=== PATIENT | male | born 1960 | race Hispanic/Latino ===

== ENCOUNTER → 2025-11-28 | Outpatient (CLI) | payer OTHER ==
[~2025-11-28] VITALS: Ht 188 cm; Wt 92.7 kg
[~2025-11-28] MED LIST: ASPI-1197 PO; ATOR40TA69 PO; BUSP15TA3 PO; EMPA25TA PO; FURO20TA4 PO; ISOS30TA92 PO; LISI20TA24 PO; LORA10TA7 PO; METF-444 PO; METO-409 PO; PROP225T8 PO; SERT-439 PO; TRAM100T34 PO; TRAZ150T79 PO
--- NOTE | 2025-11-28 08:51 | EKG ---
[facility] Test Date: 2025-11-28 Test Time: 08:47:35 Pat Name: MITCH WALSH Department: [facility] Room: Gender: M Informatica: [id number] : 1960 Requested By: LIVE KIDD Order Number: [id number] Reading MD: Danielle Johnson Measurements Intervals Myrtle Rate: 62 P: -1 NJ: 247 QRS: -21 QRSD: 126 T: 57 QT: 442 QTc: 451 Interpretive Statements Sinus rhythm Prolonged NJ interval Left bundle branch block No previous ECG available for comparison Electronically Signed On 11-28-2025 09:05:10 NETWORK SYSTEM[employer] ADMINISTRATOR by Danielle Johnson Please click the below link to view image of tracing.
[2025-11-28 08:59] LABS: IMMATURE GRANULOCYTE ABSOLUTE 0.09 K/uL (0-1); NUCLEATED RED BLOOD CELLS 0.0 % (0.0-0.19); PLATELET COUNT (AUTO) 227 K/uL (130-400); RED BLOOD CELL COUNT(AUTO) 4.99 MIL/uL (4.50-6.20); RED CELL DISTRIBUTION WIDTH 14.1 % (11.0-15.5); WHITE BLOOD COUNT (AUTO) 14.8 K/uL (4.8-10.8)
[2025-11-28 09:07] LABS: CREATININE 1.3 mg/dL (0.5-1.3); GLOMERULAR FILTR. RATE CALC 61.0 mL/min (>90); GLUCOSE,RANDOM 154.0 mg/dL (70-105); SODIUM SERUM 138.0 mmol/L (136-145); UREA NITROGEN, BLOOD 14.0 mg/dL (7-18)
[2025-11-28 09:11] VITALS: BP 106/65; PULSE 64; RESP 17; TEMP 97
[2025-11-28 09:11] LABS: INR 1.04 (0.85-1.15)
--- NOTE | 2025-11-29 09:11 | NUR ---
RE: EKG RESULTS REPORTED EKG RESULTS TO DR TERRAZAS, NO NEW ORDERS RECEIVED.
--- NOTE | 2025-11-29 15:22 | NUR ---
REPORT CBC AND ER VISIT (HYPOTENSION) REPORTED TO DR KIDD/LETY BY TERESA XIE RN. PER DR KIDD PROCEDURE CANCELLED AND PT NOTIFIED BY LETY.
== END ==
LOC: EDSTATUS 08:00 → DAH 08:23 → EDBD 12-02 08:00
PROVIDERS: ATTEND Student in an Organized Health Care Education/Training Program
DX: K40.20 Bilateral inguinal hernia, without obstruction or gangrene, not specified as recurrent (principal); I48.91 Unspecified atrial fibrillation; I10 Essential (primary) hypertension; E11.9 Type 2 diabetes mellitus without complications; E78.00 Pure hypercholesterolemia, unspecified; F32.A Depression, unspecified; F41.9 Anxiety disorder, unspecified; Z88.0 Allergy status to penicillin; Z79.899 Other long term (current) drug therapy; Z98.890 Other specified postprocedural states
CPT/HCPCS: 80048; 85025; 85610; 85730; 36415; 93005; A6260